=== PATIENT | female | born 1955 | race Caucasian/White ===

== ENCOUNTER 2018-01-22 12:23 | Emergency (ER) | payer MEDICAID ==
[~2018-01-22] VITALS: Ht 154.9 cm; Wt 52.2 kg
[2018-01-22] MEDS ORDERED: HYDROMORPHONE 2 MG/1 ML DISP.SYRIN ONE (12:45)
[2018-01-22] MEDS ORDERED: HYDROMORPHONE 1 MG/1 ML DISP.SYRIN IM ONE (12:45)
[2018-01-22] MEDS ORDERED: ONDANSETRON 4 MG/2 ML VIAL IM ONE (12:45)
[2018-01-22] MEDS ORDERED: ONDANSETRON 4 MG/2 ML VIAL ONE (12:45)
--- NOTE | 2018-01-22 13:05 | NUR ---
Patient discharged to home in stable conditon and slow steady gait. Written and verbal after care instructions given to patient and family. Patient and family verbalized understanding of instructions. PATIENT IS PAIN FREE AT THIS TIME.
== END 2018-01-22 13:07 | disposition home or self-care (01) ==
LOC: ER 12:25
DX: M54.30 Sciatica, unspecified side (principal); M54.9 Dorsalgia, unspecified; G89.29 Other chronic pain; I10 Essential (primary) hypertension
CPT/HCPCS: A4663; J1170; J2405